=== PATIENT | female | born 1965 | race Caucasian/White ===

== ENCOUNTER 2019-04-13 11:25 | Day surgery (SDC) | payer OTHER ==
[~2019-04-13] VITALS: Ht 167.6 cm; Wt 63.5 kg
[~2019-04-13 11:25] MED LIST: BIOTIN1000 MCG PO
[2019-04-13 12:30] VITALS: BP 130/88
--- NOTE | 2019-04-17 06:13 | O ---
[facility] [place] [address] OPERATIVE REPORT Name: ALMA ESPINOZA Room #: [facility]P [facility]#: [id number] Admission: 04/13/19 Attend Phys: Jaret Mccarthy MD Discharge: 04/13/19 Date of : 65 Report #: [id number] THIS REPORT FOR: //name// CC: Marvel Mccarthy DATE OF SERVICE: 04/13/2019 PREOPERATIVE DIAGNOSIS: Right sided nasal lacrimal duct obstruction. POSTOPERATIVE DIAGNOSIS: Right sided nasal lacrimal duct obstruction. OPERATION PERFORMED: Right sided endoscopic balloon dacryocystoplasty with silicone intubation. ANESTHESIA: General. COMPLICATIONS: None. INDICATIONS FOR SURGERY: This patient has acquired unilateral nasal lacrimal duct stenosis with chronic tearing and discharge. The current procedures are undertaken in order to improve the patient's level of lacrimal outflow and visual clarity. Informed consent was obtained to include but not limited to the potential risks for damage to the eye, loss of vision, bleeding, infection, failure to improve the problem and need for further surgery. DESCRIPTION OF OPERATION: The patient was taken to the operating room, where general anesthesia was administered. The medial canthus was anesthetized with 2% Xylocaine with epinephrine mixed with equal parts of 0.75% Marcaine with Wydase. The lateral wall of the nose was then injected with the same anesthetic mixture. The nose was packed with Afrin-soaked Cottonoids. The patient was then prepped and draped in the usual sterile fashion. The superior and inferior puncta were then atraumatically dilated with a punctum dilator. A size 0 lacrimal probe was then passed through the superior canalicular system and through the stenosed nasal lacrimal duct. The nasal packing was removed and the endoscope was brought into the field. The inferior turbinate was gently infractured with a [address] periosteal elevator to allow visualization of the inferior meatus in the area of the opening of the valve of Hasner in the nose. The probe was found and confirmed to be in the proper location. It was removed and subsequently replaced with a size 1 and a size 2 Murrell probe, which also had their passage confirmed endoscopically to be in the [facility] [address] [place] [address] OPERATIVE REPORT Name: ALMA ESPINOZA Room #: DEP [facility]..#: [id number] Admission: 04/13/19 Attend Phys: Jaret Mccarthy MD Discharge: 04/13/19 Date of : 65 Report #: [id number] proper location. A 3 x 15 LacriCatheter was lubricated with a small quantity of ophthalmic antibiotic ointment. The LacriCatheter was then passed through the superior canalicular system and the stenosed nasal lacrimal duct. The LacriCatheter was confirmed to be in the proper location endoscopically intranasally in the inferior meatus. The LacriCatheter was inflated to 9 atmospheres for 90 seconds and deflated. The catheter was then inflated to 9 atmospheres for 60 seconds. The catheter was then withdrawn to the proximal black ring. It was then inflated to 9 atmospheres for 90 seconds. The balloon was then deflated and reinflated to 9 atmospheres for 60 seconds. The balloon was the aspirated and withdrawn to the distal black ring. It was then inflated to 9 atmospheres for 90 seconds. The balloon was deflated and reinflated to 9 atmospheres for 60 seconds. The balloon was then deflated and vigorously aspirated as it was withdrawn through the superior canalicular system. A Shaw tube was then passed through the superior canalicular system and out the dilated duct. The Shwa tube was secured under the inferior turbinate in the inferior meatus with a Shaw hook and retrieved endoscopically. The Shaw tube was then passed through the inferior canalicular system in a similar fashion and was retrieved endoscopically in the nose atraumatically. The Shaw tube was then secured to itself with 3 square throws and then to the lateral wall of the nose with a 5-0 Prolene suture. Antibiotic steroid drops were then placed in the eye. A small quantity of ophthalmic antibiotic ointment was placed on the Shaw tube. The patient was then transported to the recovery area with no anesthetic or operative complications being noted. <ELECTRONICALLY SIGNED> By: Jaret Mccarthy MD 04/17/19 0613 [id number] [id number] Jaret Mccarthy MD /nt
== END 2019-04-13 15:05 | disposition home or self-care (01) ==
LOC: OR 11:25 → TBA 11:25 → OR 12:50
DX: H04.551 Acquired stenosis of right nasolacrimal duct (principal); Z98.890 Other specified postprocedural states; Z90.711 Acquired absence of uterus with remaining cervical stump; Z87.891 Personal history of nicotine dependence; Z88.8 Allergy status to other drugs, medicaments and biological substances
CPT/HCPCS: 50010; 50101; 50386; 50398; 51777; 55343; 56528; 62110; 62900; 64037; 70005